=== PATIENT | female | born 1950 | race Caucasian/White ===

== ENCOUNTER → 2017-12-31 | Outpatient (CLI) | payer OTHER | END | disposition home or self-care (01) | LOC: KCIC MRI 10:15 | DX: M48.061 Spinal stenosis, lumbar region without neurogenic claudication (principal); M43.16 Spondylolisthesis, lumbar region; M51.36 Other intervertebral disc degeneration, lumbar region; M25.78 Osteophyte, vertebrae | CPT/HCPCS: 72148 ==

== ENCOUNTER → 2018-01-05 | Outpatient (CLI) | payer OTHER | END | disposition home or self-care (01) | LOC: PNCL 12:52 | DX: M51.16 Intervertebral disc disorders with radiculopathy, lumbar region (principal); M48.061 Spinal stenosis, lumbar region without neurogenic claudication; R53.83 Other fatigue | CPT/HCPCS: G0463 ==

== ENCOUNTER → 2018-01-19 | Outpatient (CLI) | payer OTHER, MEDICARE ==
[~2018-01-19] MED LIST: IOHEXOL 180 MG/ML 10 ML VIAL.; methylPREDNISolone ACETATE 40 MG/ML VIAL.; methylPREDNISolone ACETATE 80 MG/ML VIAL.
== END | disposition home or self-care (01) ==
LOC: PNCL 10:41
DX: M51.16 Intervertebral disc disorders with radiculopathy, lumbar region (principal); Z88.8 Allergy status to other drugs, medicaments and biological substances; I10 Essential (primary) hypertension; J40 Bronchitis, not specified as acute or chronic; E11.9 Type 2 diabetes mellitus without complications
CPT/HCPCS: 62323; J1030; J1040; Q9965

== ENCOUNTER → 2018-01-19 | Outpatient (CLI) | payer OTHER | END | disposition home or self-care (01) | LOC: KCIC 15:41 | DX: M47.12 Other spondylosis with myelopathy, cervical region (principal); M48.02 Spinal stenosis, cervical region; M41.82 Other forms of scoliosis, cervical region; M51.44 Schmorl's nodes, thoracic region; M47.897 Other spondylosis, lumbosacral region; M81.8 Other osteoporosis without current pathological fracture; M25.78 Osteophyte, vertebrae; M16.0 Bilateral primary osteoarthritis of hip | CPT/HCPCS: 72141; 72146; 73502 ==

== ENCOUNTER → 2018-02-02 | Outpatient (CLI) | payer OTHER ==
[2018-02-02 09:19] LABS: ADD MAN DIFF? NO
[2018-02-02 09:26] LABS: BASO # 0.1 x10^3/uL (0.0-0.2); BASO % 1 % (0-3); EOS # 0.2 x10^3/uL (0.0-0.7); EOS % 1 % (0-3); HEMATOCRIT 40.3 % (36.0-47.0); HEMOGLOBIN 13.4 g/dL (12.0-15.5); LYMPH # 2.6 x10^3/uL (1.0-4.8); LYMPH % 19 % (24-48); MEAN CORPUSCULAR HEMOGLOBIN 28 pg (25-35); MEAN CORPUSCULAR HGB CONC 33 g/dL (31-37); MEAN CORPUSCULAR VOLUME 85 fL (79-100); MONO # 0.8 x10^3/uL (0.0-1.1); MONO % 6 % (0-9); NEUT # 10.2 x10^3uL (1.8-7.7); NEUT % 74 % (31-73); PLATELET COUNT 449 x10^3/uL (140-400); RED BLOOD COUNT 4.75 x10^6/uL (3.50-5.40); RED CELL DISTRIBUTION WIDTH 14.8 % (11.5-14.5); WHITE BLOOD COUNT 13.8 x10^3/uL (4.0-11.0)
[2018-02-02 09:37] LABS: ALBUMIN 3.5 g/dL (3.4-5.0); ANION GAP 11 (6-14); BLOOD UREA NITROGEN 36 mg/dL (7-20); CALCIUM 9.6 mg/dL (8.5-10.1); CARBON DIOXIDE 23 mmol/L (21-32); CHLORIDE 99 mmol/L (98-107); GFR 55.5; GLUCOSE 155 mg/dL (70-99); POTASSIUM 4.2 mmol/L (3.5-5.1); SODIUM 133 mmol/L (136-145)
[2018-02-02 09:47] LABS: PARTIAL THROMBOPLASTIN TIME 28 SEC (24-38); PROTHROMBIN TIME PATIENT 12.5 SEC (11.7-14.0)
[2018-02-02 11:30] LABS: SEDIMENTATION RATE 23 (0-25)
[2018-02-02 13:30] LABS: BILIRUBIN,URINE NEGATIVE (NEG); CLARITY,URINE CLEAR; COLOR,URINE YELLOW; GLUCOSE,URINE 100 mg/dL (NEG); NITRITE,URINE NEGATIVE (NEG); PROTEIN,URINE NEGATIVE (NEG-TRACE); UROBILINOGEN,URINE 0.2 mg/dL (0.2 mg/dL)
[2018-02-02 13:42] LABS: BACTERIA,URINE FEW /HPF (0-FEW); RBC,URINE 0 /HPF (0-2); SQUAMOUS EPITHELIAL CELL,UR MOD /LPF; WBC,URINE OCC /HPF (0-4)
[2018-02-03 03:14] LABS: MRSA BY PCR Negative (Negative)
[2018-02-03 03:14] LABS: HEMOGLOBIN A1C 7.7 % (4.8-5.6)
== END | disposition home or self-care (01) ==
LOC: SURGPAT 14:38
DX: Z01.818 Encounter for other preprocedural examination (principal); I10 Essential (primary) hypertension; M19.012 Primary osteoarthritis, left shoulder; M19.011 Primary osteoarthritis, right shoulder; R94.31 Abnormal electrocardiogram [ECG] [EKG]
CPT/HCPCS: 36415; 71046; 80048; 81001; 82040; 83036; 85025; 85610; 85651; 85730; 87086; 87641; 93005

== ENCOUNTER → 2018-02-19 | Outpatient (CLI) | payer OTHER ==
[2018-02-19] MEDS: REGADENOSON 0.4 MG/5 ML DISP.SYRIN. IV (10:26)
== END | disposition home or self-care (01) ==
LOC: NM 07:25
DX: Z01.818 Encounter for other preprocedural examination (principal)
CPT/HCPCS: 78452; 93017; 93306; 96374; 96375; 96376; A9500; J2785

== ENCOUNTER 2018-02-24 06:14 | Inpatient (IN) | payer OTHER, MEDICARE ==
[2018-02-24 06:49] LABS: POC GLUCOSE 148 mg/dL (70-99)
[2018-02-24] MEDS ORDERED: LIDOCAINE 1% PF 2 ML VIAL. ID (07:00)
[2018-02-24] MEDS ORDERED: fentaNYL PF VIAL 100 MCG/2 ML VIAL IV ×3 (07:00→07:15)
[2018-02-24] MEDS ORDERED: ONDANSETRON PF 4 MG/2 ML VIAL. IV (07:00)
[2018-02-24] MEDS ORDERED: PROCHLORPERAZINE 10 MG/2 ML VIAL. IV ×2 (07:00→07:15)
[2018-02-24] MEDS: IV DEXTROSE 5 %-0.45 % NACL 1,000 ML IV ×2 (07:05→17:05)
[2018-02-24] MEDS ORDERED: HYDROcodone/APAP 7.5/325MG 1 TAB TABLET PO (07:15)
[2018-02-24] MEDS ORDERED: oxyCODONE/APAP 7.5/325 1 TAB TABLET PO (07:15)
[2018-02-24] MEDS ORDERED: ZOLPIDEM 5 MG TABLET. PO (07:15)
[2018-02-24] MEDS ORDERED: NALBUPHINE 10 MG/ML AMPUL. IV (07:15)
[2018-02-24] MEDS ORDERED: MORPHINE SULFATE 4 MG/ML DISP.SYRIN. IV ×2 (07:15)
[2018-02-24] MEDS ORDERED: HYDROcodone/APAP 10/325 1 TAB TABLET PO (07:15)
[2018-02-24] MEDS ORDERED: DEXTROSE 50% 25 GM / 50ML DISP.SYRIN. IV (07:15)
[2018-02-24] MEDS ORDERED: traMADol 50 MG TABLET PO (07:15)
[2018-02-24] MEDS ORDERED: ACETAMINOPHEN 325 MG TABLET. PO (07:15)
[2018-02-24] MEDS ORDERED: CALCIUM CARBONATE 500 MG TAB.CHEW PO (07:15)
[2018-02-24] MEDS ORDERED: 0.9 % SODIUM CHLORIDE 10 ML DISP.SYRIN. IV (07:15)
[2018-02-24] MEDS ORDERED: oxyCODONE/APAP 5/325 1 TAB TABLET PO (07:15)
[2018-02-24] MEDS ORDERED: PHENYLEPHRINE in 0.9% NACL PF 1 MG/10 ML SYRINGE. IV (07:19)
[2018-02-24] MEDS ORDERED: ROCURONIUM 50 MG/5 ML VIAL. (07:19)
[2018-02-24] MEDS ORDERED: ONDANSETRON PF 4 MG/2 ML VIAL. (07:19)
[2018-02-24] MEDS ORDERED: SEVOFLURANE 61 TO 120 MINUTES. IH (07:19)
[2018-02-24] MEDS ORDERED: DEXAMETHASONE SOD PHOS 20 MG/5 ML VIAL. (07:19)
[2018-02-24] MEDS ORDERED: PROPOFOL 20 ML IV (07:19)
[2018-02-24] MEDS: IV RINGERS,LACTATED 1000ML 1,000 ML IV (07:21)
[2018-02-24] MEDS: HYDROcodone/APAP 7.5/325MG 1 TAB TABLET PO (07:26)
[2018-02-24] MEDS: CELECOXIB 200 MG CAPSULE. PO ×2 (07:27→21:06)
[2018-02-24 07:28] LABS: INR 1.1 (0.8-1.1); PARTIAL THROMBOPLASTIN TIME 33 SEC (24-38); PROTHROMBIN TIME PATIENT 13.8 SEC (11.7-14.0)
[2018-02-24] MEDS: TRANEXAMIC ACID 1,000 MG in IV NS 50ML -- 1ST BAG INJ (07:40)
[2018-02-24] MEDS: MORPHINE SULFATE 5 MG, KETOROLAC 30 MG, ROPIVacaine 0.5% PF 60 ML, EPINEPHrine 0.5 MG i... INT ART (08:01)
[2018-02-24] MEDS: TRANEXAMIC ACID 1,000 MG in IV NS 50ML -- 2ND BAG INJ (09:30)
[2018-02-24] MEDS ORDERED: GLYCOPYRROLATE 1 MG/5 ML VIAL. (09:32)
[2018-02-24] MEDS ORDERED: NEOSTIGMINE METHYLSULFATE 5 MG/5 ML SYRINGE. (09:32)
[2018-02-24] MEDS ORDERED: fentaNYL PF VIAL 100 MCG/2 ML VIAL (10:18)
[2018-02-24] MEDS: fentaNYL PF VIAL 100 MCG/2 ML VIAL IV ×4 (10:20→10:53)
[2018-02-24 10:54] LABS: POC GLUCOSE 212 mg/dL (70-99)
[2018-02-24] MEDS: INSULIN ASPART 100 UNIT/ML 10ML VIAL. SQ (10:57)
[2018-02-24] MEDS: MORPHINE SULFATE 4 MG/ML DISP.SYRIN. IV ×2 (11:16→11:32)
[2018-02-24] MEDS ORDERED: ceFAZolin 2GM PREMIX 2 GM/50 ML BAG IV (12:00)
[2018-02-24] MEDS: SENNOSIDES/DOCUSATE 8.6/50MG TABLET. PO (13:39)
[2018-02-24] MEDS: hydroCHLOROthiazide 25 MG TABLET PO (14:00)
[2018-02-24] MEDS: LISINOPRIL 20 MG TABLET PO (14:00)
[2018-02-24 16:40] LABS: POC GLUCOSE 188 mg/dL (70-99)
[2018-02-24] MEDS: WARFARIN 7.5 MG TABLET. PO (17:30)
[2018-02-24] MEDS: FERROUS SULFATE 325 MG TABLET. PO (17:30)
[2018-02-24] MEDS: metFORMIN 500 MG TABLET PO (17:31)
[2018-02-24] MEDS: KETOROLAC 30 MG, BUPIVACAINE MPF 0.25% 20 ML, EPINEPHrine 0.5 MG in TOTAL VOLUME SYRING... INT ART (17:32)
[2018-02-24] MEDS: traMADol 50 MG TABLET PO ×2 (17:32→21:58)
[2018-02-24] MEDS: AZELASTINE NASAL SPRAY 30ML BOTTLE. NS (21:07)
[2018-02-25 05:10] LABS: POC GLUCOSE 159 mg/dL (70-99)
[2018-02-25] MEDS: KETOROLAC 30 MG, BUPIVACAINE MPF 0.25% 20 ML, EPINEPHrine 0.5 MG in TOTAL VOLUME SYRING... INT ART (05:30)
[2018-02-25 05:55] LABS: HEMATOCRIT 27.4 % (36.0-47.0); HEMOGLOBIN 9.6 g/dL (12.0-15.5); MEAN CORPUSCULAR HGB CONC 35 g/dL (31-37)
[2018-02-25] MEDS ORDERED: MAGNESIUM HYDROXIDE 2,400 MG/30 ML ORAL.SUSP. PO (06:00)
[2018-02-25 06:06] LABS: INR 1.6 (0.8-1.1); PROTHROMBIN TIME PATIENT 18.5 SEC (11.7-14.0)
[2018-02-25] MEDS: MULTIVITAMIN with MINERAL TABLET. PO (08:32)
[2018-02-25] MEDS: FERROUS SULFATE 325 MG TABLET. PO ×2 (08:32→17:18)
[2018-02-25] MEDS: CELECOXIB 200 MG CAPSULE. PO ×2 (08:32→20:59)
[2018-02-25] MEDS: SENNOSIDES/DOCUSATE 8.6/50MG TABLET. PO (08:32)
[2018-02-25] MEDS: metFORMIN 500 MG TABLET PO ×2 (08:32→17:18)
[2018-02-25] MEDS: traMADol 50 MG TABLET PO ×3 (08:33→22:04)
[2018-02-25] MEDS: AZELASTINE NASAL SPRAY 30ML BOTTLE. NS ×2 (08:35→20:59)
[2018-02-25] MEDS: LISINOPRIL 20 MG TABLET PO (09:00)
[2018-02-25] MEDS: hydroCHLOROthiazide 25 MG TABLET PO (09:00)
[2018-02-25 12:06] LABS: POC GLUCOSE 165 mg/dL (70-99)
[2018-02-25] MEDS ORDERED: BISACODYL 10 MG SUPP.RECT. PR (16:00)
[2018-02-25 16:41] LABS: POC GLUCOSE 135 mg/dL (70-99)
[2018-02-25] MEDS: WARFARIN 3 MG TABLET. PO (17:18)
[2018-02-26] MEDS: traMADol 50 MG TABLET PO ×3 (02:03→17:38)
[2018-02-26 06:09] LABS: HEMATOCRIT 25.8 % (36.0-47.0); HEMOGLOBIN 8.9 g/dL (12.0-15.5); MEAN CORPUSCULAR HGB CONC 35 g/dL (31-37)
[2018-02-26 06:13] LABS: INR 2.3 (0.8-1.1); PROTHROMBIN TIME PATIENT 24.9 SEC (11.7-14.0)
[2018-02-26 06:21] LABS: POC GLUCOSE 103 mg/dL (70-99)
[2018-02-26] MEDS: SENNOSIDES/DOCUSATE 8.6/50MG TABLET. PO (08:08)
[2018-02-26] MEDS: POLYETHYLENE GLYCOL 3350 17 GM PACKET. PO (08:08)
[2018-02-26] MEDS: CELECOXIB 200 MG CAPSULE. PO ×2 (08:08→20:36)
[2018-02-26] MEDS: hydroCHLOROthiazide 25 MG TABLET PO (08:08)
[2018-02-26] MEDS: MULTIVITAMIN with MINERAL TABLET. PO (08:08)
[2018-02-26] MEDS: metFORMIN 500 MG TABLET PO ×2 (08:08→17:38)
[2018-02-26] MEDS: FERROUS SULFATE 325 MG TABLET. PO ×2 (08:08→17:38)
[2018-02-26] MEDS: LISINOPRIL 20 MG TABLET PO (09:00)
[2018-02-26 11:40] LABS: POC GLUCOSE 102 mg/dL (70-99)
[2018-02-26] MEDS: WARFARIN 1 MG TABLET. PO (17:39)
[2018-02-26] MEDS: AZELASTINE NASAL SPRAY 30ML BOTTLE. NS ×2 (17:41→20:36)
[2018-02-26 20:41] LABS: POC GLUCOSE 124 mg/dL (70-99)
[2018-02-26 20:41] LABS: POC GLUCOSE 112 mg/dL (70-99)
[2018-02-27] MEDS: traMADol 50 MG TABLET PO ×3 (00:27→13:02)
[2018-02-27 05:59] LABS: HEMATOCRIT 27.6 % (36.0-47.0); HEMOGLOBIN 9.8 g/dL (12.0-15.5); MEAN CORPUSCULAR HGB CONC 36 g/dL (31-37)
[2018-02-27 06:40] LABS: POC GLUCOSE 112 mg/dL (70-99)
[2018-02-27 06:47] LABS: INR 1.9 (0.8-1.1); PROTHROMBIN TIME PATIENT 21.5 SEC (11.7-14.0)
[2018-02-27] MEDS: SENNOSIDES/DOCUSATE 8.6/50MG TABLET. PO (08:36)
[2018-02-27] MEDS: FERROUS SULFATE 325 MG TABLET. PO (08:36)
[2018-02-27] MEDS: hydroCHLOROthiazide 25 MG TABLET PO (08:36)
[2018-02-27] MEDS: metFORMIN 500 MG TABLET PO (08:36)
[2018-02-27] MEDS: CELECOXIB 200 MG CAPSULE. PO (08:36)
[2018-02-27] MEDS: AZELASTINE NASAL SPRAY 30ML BOTTLE. NS (08:39)
[2018-02-27] MEDS: MULTIVITAMIN with MINERAL TABLET. PO (09:00)
[2018-02-27] MEDS: WARFARIN 2 MG TABLET. PO (13:04)
[2018-02-28] MEDS ORDERED: WARFARIN 3 MG TABLET. PO (16:00)
[2018-03-03 10:21] LABS: POC GLUCOSE 107 mg/dL (70-99)
== END 2018-02-27 14:40 | DRG 470 ==
LOC: OPSVCIP 06:14 → 4 SOUTHEST 11:39
PROC: 0SR90JZ Replacement of Right Hip Joint with Synthetic Substitute, Open Approach (ICD-10-PCS; principal; 2018-02-24 07:30)
DX: M16.11 Unilateral primary osteoarthritis, right hip (principal); I48.91 Unspecified atrial fibrillation; E11.9 Type 2 diabetes mellitus without complications; I10 Essential (primary) hypertension; M48.00 Spinal stenosis, site unspecified
CPT/HCPCS: 36415; 72170; 73501; 82962; 85014; 85018; 85610; 85730; 86850; 86900; 86901; 97116-GP; 97150-GP; 97162-GP; 97166-GO; 97530-GP; 97535-GO; A7015; J0171; J0690; J1100; J1815; J1885; J2270; J2370; J2405; J2704; J2710; J2795; J3010; J3490; J7030; J7120

== ENCOUNTER 2018-04-02 10:56 | Emergency (ER) | payer OTHER, MEDICARE ==
[2018-04-02 11:54] LABS: ADD MAN DIFF? NO
[2018-04-02 12:02] LABS: BASO # 0.1 x10^3/uL (0.0-0.2); BASO % 1 % (0-3); EOS # 0.1 x10^3/uL (0.0-0.7); EOS % 1 % (0-3); HEMATOCRIT 29.1 % (36.0-47.0); HEMOGLOBIN 10.2 g/dL (12.0-15.5); LYMPH # 1.4 x10^3/uL (1.0-4.8); LYMPH % 12 % (24-48); MEAN CORPUSCULAR HEMOGLOBIN 29 pg (25-35); MEAN CORPUSCULAR HGB CONC 35 g/dL (31-37); MEAN CORPUSCULAR VOLUME 83 fL (79-100); MONO # 0.8 x10^3/uL (0.0-1.1); MONO % 7 % (0-9); NEUT # 8.9 x10^3uL (1.8-7.7); NEUT % 78 % (31-73); PLATELET COUNT 509 x10^3/uL (140-400); RED BLOOD COUNT 3.49 x10^6/uL (3.50-5.40); RED CELL DISTRIBUTION WIDTH 15.6 % (11.5-14.5); WHITE BLOOD COUNT 11.4 x10^3/uL (4.0-11.0)
[2018-04-02 12:05] LABS: ANION GAP 12 (6-14); BLOOD UREA NITROGEN 21 mg/dL (7-20); BUN/CREATININE RATIO 21 (6-20); CARBON DIOXIDE 24 mmol/L (21-32); CHLORIDE 96 mmol/L (98-107); GFR 55.3; GLUCOSE 146 mg/dL (70-99); POTASSIUM 3.7 mmol/L (3.5-5.1); SODIUM 132 mmol/L (136-145)
[2018-04-02 12:08] LABS: CLARITY,URINE BLOODY; COLOR,URINE RED
[2018-04-02 12:10] LABS: CREATINE KINASE 77 U/L (26-192)
[2018-04-02 12:11] LABS: ALBUMIN 3.2 g/dL (3.4-5.0); ALBUMIN/GLOBULIN RATIO 0.9 (1.0-1.7); ALK PHOS 109 U/L (46-116); ALT (SGPT) 16 U/L (14-59); AST (SGOT) 17 U/L (15-37); RBC,URINE TNTC /HPF (0-2); TOTAL BILIRUBIN 0.5 mg/dL (0.2-1.0); TOTAL PROTEIN 6.9 g/dL (6.4-8.2)
[2018-04-02 12:12] LABS: BACTERIA,URINE 0 /HPF (0-FEW)
[2018-04-02 12:52] LABS: INR 7.2 (0.8-1.1); PARTIAL THROMBOPLASTIN TIME > 150 SEC (24-38)
[2018-04-02] MEDS: PHYTONADIONE 10 MG/ML ORAL SOLUTION. PO (13:47)
== END 2018-04-02 14:02 | disposition home or self-care (01) ==
LOC: ER 10:56
DX: R04.0 Epistaxis (principal); T45.515A Adverse effect of anticoagulants, initial encounter; E78.00 Pure hypercholesterolemia, unspecified; E11.9 Type 2 diabetes mellitus without complications; I48.91 Unspecified atrial fibrillation; I10 Essential (primary) hypertension; Z91.041 Radiographic dye allergy status; Z88.8 Allergy status to other drugs, medicaments and biological substances; Y92.89 Other specified places as the place of occurrence of the external cause
CPT/HCPCS: 36415; 80053; 81001; 82550; 85025; 85610; 85730; 86850; 86900; 86901; 99284

== ENCOUNTER 2022-01-02 03:35 | Emergency (ER) | payer MEDICARE, OTHER ==
[~2022-01-02] VITALS: Ht 157.5 cm; Wt 81.8 kg
[~2022-01-02 03:35] MED LIST changes: +APIX5TAB PO; +ASPI325T8 PO; +ASPI81TA59 PO; +ATOR10TA PO; +AZEL137S3 NS; +CYCL5TAB PO; +DILT240C2 PO; +Diltiazem Hcl PO; +HYDR-2761 PO; -IOHEXOL 180 MG/ML 10 ML VIAL.; +LISI1TAB39 PO; +METF500T16 PO; +MUPI22OI TP; +NAPR500T8 PO; +POLY17PO29 PO; +SENN1TAB99 PO; +TRAM50TA PO; +VERA240C2 PO; -methylPREDNISolone ACETATE 40 MG/ML VIAL.; -methylPREDNISolone ACETATE 80 MG/ML VIAL.
[2022-01-02 04:53] LABS: BASO # 0.1 x10^3/uL (0.0-0.2); BASO % 1 % (0-3); EOS # 0.3 x10^3/uL (0.0-0.7); EOS % 2 % (0-3); HEMATOCRIT 37.1 % (36.0-47.0); HEMOGLOBIN 12.3 g/dL (12.0-15.5); LYMPH # 1.8 x10^3/uL (1.0-4.8); LYMPH % 15 % (24-48); MEAN CORPUSCULAR HEMOGLOBIN 28 pg (25-35); MEAN CORPUSCULAR HGB CONC 33 g/dL (31-37); MEAN CORPUSCULAR VOLUME 85 fL (79-100); MONO # 0.8 x10^3/uL (0.0-1.1); MONO % 7 % (0-9); NEUT # 8.7 x10^3/uL (1.8-7.7); NEUT % 74 % (31-73); PLATELET COUNT 440 x10^3/uL (140-400); RED BLOOD COUNT 4.35 x10^6/uL (3.50-5.40); RED CELL DISTRIBUTION WIDTH 13.6 % (11.5-14.5); WHITE BLOOD COUNT 11.7 x10^3/uL (4.0-11.0)
[2022-01-02] MEDS ORDERED: OXYMETAZOLINE 0.05% NASAL SPRAY 30ML BOTTLE. NS ONE ×2 (05:00)
[2022-01-02 05:08] LABS: CALCIUM 8.6 mg/dL (8.5-10.1); CREATININE 1.3 mg/dL (0.6-1.0); GFR 40.5; POTASSIUM 4.4 mmol/L (3.5-5.1)
[2022-01-02 05:14] LABS: ALBUMIN/GLOBULIN RATIO 0.7 (1.0-1.7); TOTAL BILIRUBIN 0.4 mg/dL (0.2-1.0); TOTAL PROTEIN 7.4 g/dL (6.4-8.2)
--- NOTE | 2022-01-02 05:26 | PHYS DOC ---
Past Medical History Past Medical History: A-Fib, Diabetes-Type II, High Cholesterol, Hypertension, Other Additional Past Medical Histor: RECTAL BLEEDING Past Surgical History: Other Additional Past Surgical Histo: cardiac cath in september,)hip replacement. Smoking Status: Never Smoker Alcohol Use: None Drug Use: None General Adult EDM: Chief Complaint: NOSEBLEED HPI: HPI: 71-year-old female with prior past medical history of hypertension, hyperlipi demia and paroxysmal A. fib, presents to the ED with her sister, (patient consents to his/her/their knowledge and involvement in pts' medical care), with complaints of nosebleed that started earlier today, right nare. Patient states she doesn't take any medications-she took her self off of all of her medications. Has not seen a primary care physician Dr. Meet Mckay in 2-1/2 years. Reports her blood pressure is normally not this elevated. Has been undergoing significant stress and is currently living with her sister and sister's . Denies any falls or head trauma. Review of Systems: Review of Systems: Constitutional: Denies fever or chills. [] Eyes: Denies change in visual acuity. [] HENT: Denies nasal congestion or sore throat. [] Respiratory: Denies cough or shortness of breath. [] Cardiovascular: Denies chest pain or edema. [] GI: Denies nausea or vomiting Musculoskeletal: Denies back pain or joint pain. [] Integument: Denies rash or diaphoresis Neurologic: Denies headache, focal weakness or sensory changes. [] Psychiatric: Denies depression or anxiety or suicidal or homicidal ideations Heart Score: C/O Chest Pain: No Risk Factors: Risk Factors: DM, Current or recent (<one month) smoker, HTN, HLP, family history of CAD, obesity. Risk Scores: Score 0 - 3: 2.5% MACE over next 6 weeks - Discharge Home Score 4 - 6: 20.3% MACE over next 6 weeks - Admit for Clinical Observation Score 7 - 10: 72.7% MACE over next 6 weeks - Early Invasive Strategies Current Medications: Current Medications Medications (Trade) Dose Ordered Sig/Dejon Start Time Stop Time Status Last Admin Dose Admin Oxymetazoline HCl (Afrin) 2 spray 1X ONCE 01/02/22 05:00 01/02/22 05:01 DC 01/02/22 04:51 2 SPRAY Allergies: Allergies: Allergies Coded Allergies Type Severity Reaction Last Updated Verified atorvastatin Allergy Intermediate 02/04/18 Yes enoxaparin Adverse Reaction Severe 04/27/18 Yes warfarin Adverse Reaction Severe 04/27/18 Yes adhesive tape Adverse Reaction Intermediate Rash 02/04/18 Yes diphenhydramine Adverse Reaction Intermediate LIGHTHEADED 09/15/14 No Physical Exam: PE: Constitutional: no acute distress, non-toxic appearance. HENT: Normocephalic, atraumatic, no brisk bleeding in oropharynx, scant blood in right nare Eyes: EOMI, conjunctiva normal, no discharge. Neck: Normal range of motion, supple, Cardiovascular: S1/2 present, regular rhythm Lungs & Thorax: Speaking in full sentences, bilateral equal chest rise, no tachypnea or increased work of breathing Abdomen: soft, no tenderness, Skin: Warm, dry, no erythema, no rash. [] Extremities: No tenderness, no cyanosis, Neurologic: Alert and oriented X 3, normal motor function, normal sensory function, no focal deficits noted. [] Psychologic: Affect normal, judgement normal, mood -appears slightly anxious Current Patient Data: Labs: Laboratory Tests Test 01/02/22 04:48 White Blood Count 11.7 x10^3/uL (4.0-11.0) H Red Blood Count 4.35 x10^6/uL (3.50-5.40) Hemoglobin 12.3 g/dL (12.0-15.5) Hematocrit 37.1 % (36.0-47.0) Mean Corpuscular Volume 85 fL (79-100) Mean Corpuscular Hemoglobin 28 pg (25-35) Mean Corpuscular Hemoglobin Concent 33 g/dL (31-37) Red Cell Distribution Width 13.6 % (11.5-14.5) Platelet Count 440 x10^3/uL (140-400) H Neutrophils (%) (Auto) 74 % (31-73) H Lymphocytes (%) (Auto) 15 % (24-48) L Monocytes (%) (Auto) 7 % (0-9) Eosinophils (%) (Auto) 2 % (0-3) Basophils (%) (Auto) 1 % (0-3) Neutrophils # (Auto) 8.7 x10^3/uL (1.8-7.7) H Lymphocytes # (Auto) 1.8 x10^3/uL (1.0-4.8) Monocytes # (Auto) 0.8 x10^3/uL (0.0-1.1) Eosinophils # (Auto) 0.3 x10^3/uL (0.0-0.7) Basophils # (Auto) 0.1 x10^3/uL (0.0-0.2) Sodium Level 129 mmol/L (136-145) L Potassium Level 4.4 mmol/L (3.5-5.1) Chloride Level 93 mmol/L (98-107) L Carbon Dioxide Level 25 mmol/L (21-32) Anion Gap 11 (6-14) Blood Urea Nitrogen 30 mg/dL (7-20) H Creatinine 1.3 mg/dL (0.6-1.0) H Estimated GFR (Cockcroft-Gault) 40.5 BUN/Creatinine Ratio 23 (6-20) H Glucose Level 494 mg/dL (70-99) H Calcium Level 8.6 mg/dL (8.5-10.1) Total Bilirubin 0.4 mg/dL (0.2-1.0) Aspartate Amino Transferase (AST) 14 U/L (15-37) L Alanine Aminotransferase (ALT) 23 U/L (14-59) Alkaline Phosphatase 113 U/L (46-116) Total Protein 7.4 g/dL (6.4-8.2) Albumin 3.0 g/dL (3.4-5.0) L Albumin/Globulin Ratio 0.7 (1.0-1.7) L Laboratory Tests 01/02/22 04:48 Laboratory Tests 01/02/22 04:48 Vital Signs: Vital Signs Date Time Temp Pulse Resp B/P (MAP) Pulse Ox O2 Delivery O2 Flow Rate FiO2 01/02/22 04:08 98.1 96 20 186/87 (120) 96 Room Air 98.1 EKG: EKG: [] Radiology/Procedures: Radiology/Procedures: [] Course & Med Decision Making: Course & Med Decision Making Pertinent Labs and Imaging studies reviewed. (See chart for details) Concern for spontaneous right epistaxis with hemostasis. Was observed in the ED -had recurrent blooding that spontaneously stopped prior to any intervention. Afrin was given. Repeat blood pressure was 154/74. Patient not on any Coumadin-reports she was only on it for 3 months, A. fib spontaneously resolved. Patient was educated regarding her labs including renal insufficiency and hyperglycemia. I encourage patient to follow-up with her primary care physician in 1 to 2 weeks to repeat her blood pressure, hemoglobin A1c and labs. She was educated on her increased risk of stroke and the benefits of medical management. Will discharge home with strict ED return precautions were given for syncope, brisk bleeding, or difficulties breathing. Encouraged urgent outpatient follow- up with PMD. Life-threatening processes were considered but are low suspicion at this time, given history, physical exam and ED workup. Pt was educated on all prescription medications and adverse effects. All patient's questions were answered and pt was stable at time of discharge. Life/limb-threatening differential includes but is not limited to, thrombocytopenia, drug related adverse event, gastrointestinal bleeding, posterior epistaxis, hemorrhagic shock, DIC, life-threatening rash, arterial injury or trauma. I have spoken with the patient and/or caregivers. I explained the patient's condition, diagnoses and treatment plan based on the information available to me at this time. I have answered the patient and/or caregiver's questions and addressed any concerns. The patient and/or caregivers have a good understanding of patient's diagnosis, condition and treatment plan as can be expected at this point. Vital signs have been stable. Patient's condition is stable and appropriate for discharge from the emergency department. Patient will pursue further outpatient evaluation with primary care physician or other designated or consulting physician as outlined in the discharge instructions. The patient and/or caregivers are agreeable to this plan of care and follow-up instructions have been explained in detail. The patient and/or caregivers have received these instructions in written form and have expressed an understanding of the discharge instructions. The patient and/or caregivers are aware that any significant change of condition or worsening of symptoms should prompt immediate return to this or the closest emergency department or call to 911. Arelis Disclaimer: Arelis Disclaimer: This electronic medical record was generated, in whole or in part, using a voice recognition dictation system. Departure Departure Impression: Primary Impression: Epistaxis Additional Impressions: Hyperglycemia Renal insufficiency Uncontrolled hypertension Disposition: HOME / SELF CARE / HOMELESS Condition: STABLE Referrals: MEET COOK MD (PCP) follow up in 1 week for HgA1c, blood pressure and kidney evaluation Patient Instructions: Hyperglycemia, Ablb-ic-Sqja, Hypertension, Nosebleed Additional Instructions: EMERGENCY DEPARTMENT GENERAL DISCHARGE INSTRUCTIONS Thank you for coming to [facility] Emergency Department (ED) today and trusting us with you care. We trust that you had a positive experience in our Emergency Department. If you wish to speak to the department management, you may call the Director at [phone]. YOUR FOLLOW UP INSTRUCTIONS ARE FOLLOWS: 1. Do you have a private Doctor? If you do not have a private doctor, please ask for a resource list of physicians or clinics that may be able to assist you with follow up care. 2. The Emergency Physicain has interpreted your x-rays. The X-Ray specialist will also review them. If there is a change in the findings, you will be notified in 48 hours when at all possible. 3. A lab test or culture has been done, your results will be reviewed and you will be notified if you need a change in treatment. ADDITIONAL INSTRUCTIONS AND INFORMATION: 1. Your care today has been supervised by a physician who is specially trained in emergency care. Many problems require more than one evaluation for a complete diagnosis and treatment. We recommend that you schedule your follow up appointment as recommended to ensure complete treatment of you illness or injury. If you are unable to obtain follow up care and continue to have a problem, or if your condition worsens, we recommend that you return to the ED. 2. We are not able to safely determine your condition over the phone nor are we able to give sound medical advice over the phone. For these safety reasons, if you call for medical advice we will ask you to come to the ED for further evaluation. 3. If you have any questions regarding these discharge instructions please call the ED at [phone]. SAFETY INFORMATION: In the interest of safety, wellness, and injury prevention; we encourage you to wear your sealbelt, if you smoke; quite smoking, and we encourage family to use a protective helmet for bicycling and other sporting events that present an increased risk for head injury. IF YOUR SYMPTOMS WORSEN OR NEW SYMPTOMS DEVELOP, OR YOU HAVE CONCERNS ABOUT YOUR CONDITION; OR IF YOUR CONDITION WORSENS WHILE YOU ARE WAITING FOR YOUR FOLLOW UP APPOINTMENT; EITHER CONTACT YOUR PRIMARY CARE DOCTOR, THE PHYSICIAN WHOSE NAME AND NUMBER YOU WERE GIVEN, OR RETURN TO THE ED IMMEDIATELY. TEE EPPERSON DO Jan 02, 2022 05:25
[2022-01-02 06:23] VITALS: BP 149/72
== END 2022-01-02 07:40 | disposition home or self-care (01) ==
LOC: ER 03:35
DX: R04.0 Epistaxis (principal); E11.65 Type 2 diabetes mellitus with hyperglycemia; I10 Essential (primary) hypertension; N28.9 Disorder of kidney and ureter, unspecified; I48.91 Unspecified atrial fibrillation; E78.00 Pure hypercholesterolemia, unspecified; Z88.8 Allergy status to other drugs, medicaments and biological substances; Z88.5 Allergy status to narcotic agent
CPT/HCPCS: 36415; 80053; 85025; 99285-25

== ENCOUNTER 2022-03-31 11:10 | Inpatient (IN) | payer MEDICARE, MEDICAID ==
[~2022-03-31] VITALS: Ht 157.5 cm; Wt 82.5 kg
[2022-03-31 12:49] LABS: BACTERIA,URINE MANY /HPF (0-FEW); RBC,URINE 0 /HPF (0-2); WBC,URINE TNTC /HPF (0-4)
[2022-03-31] MEDS ORDERED: ONDA4TAB12 PO (13:09)
[2022-03-31] MEDS ORDERED: CEPH500C PO (13:09)
--- NOTE | 2022-03-31 13:12 | PHYS DOC ---
Past Medical History Past Medical History: A-Fib, Diabetes-Type II, High Cholesterol, Hypertension, Other Additional Past Medical Histor: RECTAL BLEEDING Past Surgical History: Other Additional Past Surgical Histo: cardiac cath in september,)hip replacement. Smoking Status: Never Smoker Alcohol Use: None Drug Use: None General Adult EDM: Chief Complaint: GI PROBLEM HPI: HPI: History obtained from patient. Patient is a 72-year-old female with past medical history significant for [id number] diabetes, hypertension who presents with chief complaint of urinary urgency and left lower quadrant discomfort with urination. Notes 2 small bowel movements today. States they were nonbloody. No she is passing flatus. Notes some mild nausea but denies vomiting. Denies fevers. Denies history of UTIs. Notes history of normal colonoscopy. Denies previous abdominal surgical history. Has been able to tolerate p.o. today. Denies vaginal bleeding or discharge. Denies hematuria. Denies any low back pain. Review of Systems: Review of Systems: Constitutional: Denies fever or chills. [] Eyes: Denies change in visual acuity. [] HENT: Denies nasal congestion or sore throat. [] Respiratory: Denies cough or shortness of breath. [] Cardiovascular: Denies chest pain or edema. [] GI: Denies abdominal pain, nausea, vomiting, bloody stools or diarrhea. [] : Dysuria, urinary urgency Musculoskeletal: Denies back pain or joint pain. [] Integument: Denies rash. [] Neurologic: Denies headache, focal weakness or sensory changes. [] Endocrine: Denies polyuria or polydipsia. [] Lymphatic: Denies swollen glands. [] Psychiatric: Denies depression or anxiety. [] Heart Score: C/O Chest Pain: No Risk Factors: Risk Factors: DM, Current or recent (<one month) smoker, HTN, HLP, family history of CAD, obesity. Risk Scores: Score 0 - 3: 2.5% MACE over next 6 weeks - Discharge Home Score 4 - 6: 20.3% MACE over next 6 weeks - Admit for Clinical Observation Score 7 - 10: 72.7% MACE over next 6 weeks - Early Invasive Strategies Allergies: Allergies: Allergies Coded Allergies Type Severity Reaction Last Updated Verified atorvastatin Allergy Intermediate 02/04/18 Yes enoxaparin Adverse Reaction Severe 04/27/18 Yes warfarin Adverse Reaction Severe 04/27/18 Yes adhesive tape Adverse Reaction Intermediate Rash 02/04/18 Yes diphenhydramine Adverse Reaction Intermediate LIGHTHEADED 09/15/14 No Physical Exam: PE: Constitutional: Well developed, well nourished, no acute distress, non-toxic appearance. [] HENT: Normocephalic, atraumatic, bilateral external ears normal, oropharynx moist, no oral exudates, nose normal. [] Eyes: PERRLA, EOMI, conjunctiva normal, no discharge. [] Neck: Normal range of motion, no tenderness, supple, no stridor. [] Cardiovascular:Heart rate regular rhythm, no murmur [] Lungs & Thorax: Bilateral breath sounds clear to auscultation [] Abdomen: soft, nontender, nonacute abdomen. No involuntary guarding or rigidity noted. No acute peritonitis. Skin: Warm, dry, no erythema, no rash. [] Back: No tenderness, no CVA tenderness. [] Extremities: No tenderness, no cyanosis, no clubbing, ROM intact, no edema. [] Neurologic: Alert and oriented X 3, normal motor function, normal sensory function, no focal deficits noted. [] Psychologic: Affect normal, judgement normal, mood normal. [] Current Patient Data: Labs: Laboratory Tests Test 03/31/22 11:55 03/31/22 12:41 03/31/22 14:39 Urine Collection Type Unknown Urine Color (Auto) Light yellow Urine Turbidity Hazy Urine pH (Auto) 5.5 Urine Specific [place] 1.017 Urine Protein (Auto) Negative mg/dL Urine Glucose (Auto)(UA) >=1000 mg/dL Urine Ketones (Auto) Negative mg/dL Urine Blood (Auto) Trace Urine Nitrite Negative Urine Bilirubin (Auto) Negative Urine Urobilinogen (Auto) Normal mg/dL Urine Leukocyte Esterase (Auto) Large Urine RBC 0 /HPF Urine WBC Tntc /HPF Urine Bacteria Many /HPF White Blood Count 26.1 x10^3/uL Red Blood Count 4.41 x10^6/uL Hemoglobin 12.4 g/dL Hematocrit 36.9 % Mean Corpuscular Volume 84 fL Mean Corpuscular Hemoglobin 28 pg Mean Corpuscular Hemoglobin Concent 34 g/dL Red Cell Distribution Width 14.8 % Platelet Count 435 x10^3/uL Neutrophils (%) (Auto) 92 % Lymphocytes (%) (Auto) 3 % Monocytes (%) (Auto) 4 % Eosinophils (%) (Auto) 0 % Basophils (%) (Auto) 0 % Neutrophils # (Auto) 24.1 x10^3/uL Lymphocytes # (Auto) 0.8 x10^3/uL Monocytes # (Auto) 1.0 x10^3/uL Eosinophils # (Auto) 0.0 x10^3/uL Basophils # (Auto) 0.1 x10^3/uL Segmented Neutrophils % 88 % Band Neutrophils % 4 % Lymphocytes % 3 % Monocytes % 5 % Platelet Estimate Increased Sodium Level 130 mmol/L Potassium Level 4.9 mmol/L Chloride Level 97 mmol/L Carbon Dioxide Level 21 mmol/L Anion Gap 12 Blood Urea Nitrogen 37 mg/dL Creatinine 1.6 mg/dL Estimated GFR (Cockcroft-Gault) 31.8 BUN/Creatinine Ratio 23 Glucose Level 393 mg/dL Calcium Level 9.9 mg/dL Total Bilirubin 0.4 mg/dL Aspartate Amino Transf (AST/SGOT) 10 U/L Alanine Aminotransferase (ALT/SGPT) 16 U/L Alkaline Phosphatase 97 U/L Total Protein 7.8 g/dL Albumin 3.1 g/dL Albumin/Globulin Ratio 0.7 Lactic Acid Level 2.7 mmol/L Current Medications Medications (Trade) Dose Ordered Sig/Dejon Route PRN Reason Start Time Stop Time Status Last Admin Dose Admin Cephalexin HCl (Keflex) 500 mg 1X ONCE PO 03/31/22 13:15 03/31/22 13:16 DC 03/31/22 13:33 Ondansetron HCl (Zofran Odt) 4 mg 1X ONCE PO 03/31/22 13:15 03/31/22 13:16 DC 03/31/22 13:33 Sodium Chloride 1,000 ml @ 0 mls/hr 1X ONCE IV 03/31/22 14:00 03/31/22 13:53 DC Sodium Chloride 1,000 ml @ 1,000 mls/hr 1X ONCE IV 03/31/22 14:00 03/31/22 14:59 DC 03/31/22 13:54 Ceftriaxone Sodium (Rocephin) 1 gm 1X ONCE IVP 03/31/22 14:00 03/31/22 14:02 DC 03/31/22 14:41 Laboratory Tests Test 03/31/22 11:55 Urine Collection Type Unknown Urine Color (Auto) Light yellow Urine Turbidity Hazy Urine pH (Auto) 5.5 (<5.0-8.0) Urine Specific [place] 1.017 (1.000-1.030) Urine Protein (Auto) Negative mg/dL (Negative) Urine Glucose (Auto)(UA) >=1000 mg/dL (Negative) Urine Ketones (Auto) Negative mg/dL (Negative) Urine Blood (Auto) Trace (Negative) Urine Nitrite Negative (Negative) Urine Bilirubin (Auto) Negative (Negative) Urine Urobilinogen (Auto) Normal mg/dL (Normal) Urine Leukocyte Esterase (Auto) Large (Negative) Urine RBC 0 /HPF (0-2) Urine WBC Tntc /HPF (0-4) Urine Bacteria Many /HPF (0-FEW) Vital Signs: Vital Signs Date Time Temp Pulse Resp B/P (MAP) Pulse Ox O2 Delivery O2 Flow Rate FiO2 03/31/22 11:40 99.0 93 18 144/75 (98) 98 Room Air 99.0 EKG: EKG: [] Radiology/Procedures: Radiology/Procedures: [facility] [address] [place] [address] IMAGING REPORT Signed PATIENT: MURIEL LEÓN JACCOUNT: [id number] : 1950 LOCATION: ER AGE: 72 SEX: F EXAM STATUS: REG ER ORD. PHYSICIAN: ML ELIAS DO REASON: LLQ pain PROCEDURE: CT ABDOMEN PELVIS WO CONTRAST CT ABDOMEN+PELVIS WO History: Left lower quadrant pain. Comparison: CT abdomen and pelvis 04/25/2018 Technique: Noncontrast CT of the abdomen and pelvis. Findings: The lung bases are clear. There are coronary artery calcifications partially visualized. The liver, gallbladder, pancreas and adrenal glands are unremarkable. There is punctate calcifications throughout the spleen and a few in the liver which are compatible with old granulomatous disease. The right kidney is unremarkable. The left kidney demonstrates minimal hydronephrosis and edema with perinephric adipose stranding. No nephrolithiasis. No hydroureter. No ureterolithiasis identified. Small sliding hiatal hernia versus patulous distal esophagus. The small bowel is unremarkable. Mild colonic diverticulosis. No evidence of diverticulitis. The uterus and adnexa are within normal limits. The bladder is unremarkable. There is no intra-abdominal free fluid or free air. Mild atherosclerotic calcification of the aorta and iliac arteries; no aneurysm. No abdominopelvic adenopathy. Soft tissues are unremarkable. There are multilevel degenerative changes in the spine with moderate degenerative anterolisthesis of L5 on S1. Severe left hip osteoarthritis. Right total hip arthroplasty changes. Impression: 1. Left kidney edema with mild hydronephrosis and left perinephric fat stranding. Findings may relate to pyelonephritis. No radiopaque urolithiasis calvin ntified. 2. Colonic diverticulosis without evidence of diverticulitis. 3. Degenerative changes of the spine and left hip. ------ Exposure: One or more of the following individualized dose reduction techniques were utilized for this examination: 1. Automated exposure control 2. Adjustment of the mA and/or kV according to patient size 3. Use of iterative reconstruction technique. Electronically signed by: Alirio Munson MD (03/31/2022 3:07 PM) [id number] DICTATED and SIGNED BY: ALIRIO MUNSON MD DATE: 03/31/221501 [] Course & Med Decision Making: Course & Med Decision Making Pertinent Labs and Imaging studies reviewed. (See chart for details) [] Patient is a very pleasant 72-year-old female presents with chief complaint of urinary urgency as well as left lower quadrant and left lower back pain. Initial vital signs unremarkable. Broad work-up obtained. Urinalysis does suggest infection. Urine culture pending. Initially oral Keflex was administered as I felt the patient was likely an appropriate candidate for outpatient treatment. However blood work did return with a significant leukocytosis. Hyponatremia hypochloremia present. CKD with hyperglycemia noted . No signs of DKA. IV Rocephin given additionally. Blood cultures pending. Lactate elevated at 2.7. Fluids will be administered overall I do feel the patient would benefit from hospitalization. Could have sepsis related to pyelonephritis. Case discussed with hospitalist who agrees with plan. No indication for pressor support at this time. The patient had a high probability of sudden, clinically significant deterioration, which required the highest level of physician preparedness to intervene urgently. I managed life or organ supporting interventions that required frequent re-assessment throughout their stay in the emergency department. The total critical care time spent managing their case, separate from other billable procedures, was 31 minutes. Dragon Disclaimer: Dragon Disclaimer: This electronic medical record was generated, in whole or in part, using a voice recognition dictation system. Departure Departure Impression: Primary Impression: Sepsis Qualified Codes: A41.9 - Sepsis, unspecified organism Additional Impressions: Hyponatremia CKD (chronic kidney disease) Qualified Codes: N18.9 - Chronic kidney disease, unspecified Hyperglycemia Leukocytosis Qualified Codes: D72.829 - Elevated white blood cell count, unspecified Pyelonephritis Disposition: ADMITTED INPATIENT Condition: GOOD Referrals: REJI COOK MD (PCP) Patient Instructions: Urinary Tract Infection Scripts Ondansetron (ONDANSETRON ODT) 4 Mg Tab.rapdis 1 TAB PO PRN Q6-8HRS, #9 TAB Prov: ML ELIAS DO 03/31/22 Cephalexin (KEFLEX) 500 Mg Capsule 1 CAP PO BID for 7 Days, #14 CAP Prov: ML ELIAS DO 03/31/22 ML ELIAS DO March 31, 2022 13:12
[2022-03-31] MEDS ORDERED: CEPHALEXIN 250 MG CAPSULE. PO ONE (13:15)
[2022-03-31] MEDS ORDERED: ONDANSETRON ODT 4 MG TAB.RAPDIS. PO ONE (13:15)
[2022-03-31 13:24] LABS: BASO # 0.1 x10^3/uL (0.0-0.2); BASO % 0 % (0-3); EOS % 0 % (0-3); HEMATOCRIT 36.9 % (36.0-47.0); HEMOGLOBIN 12.4 g/dL (12.0-15.5); LYMPH # 0.8 x10^3/uL (1.0-4.8); LYMPH % 3 % (24-48); MEAN CORPUSCULAR HEMOGLOBIN 28 pg (25-35); MEAN CORPUSCULAR HGB CONC 34 g/dL (31-37); MEAN CORPUSCULAR VOLUME 84 fL (79-100); MONO % 4 % (0-9); NEUT # 24.1 x10^3/uL (1.8-7.7); NEUT % 92 % (31-73); PLATELET COUNT 435 x10^3/uL (140-400); RED BLOOD COUNT 4.41 x10^6/uL (3.50-5.40); RED CELL DISTRIBUTION WIDTH 14.8 % (11.5-14.5); WHITE BLOOD COUNT 26.1 x10^3/uL (4.0-11.0)
[2022-03-31 13:34] LABS: CALCIUM 9.9 mg/dL (8.5-10.1); CREATININE 1.6 mg/dL (0.6-1.0); GFR 31.8; POTASSIUM 4.9 mmol/L (3.5-5.1)
[2022-03-31 13:42] LABS: ALBUMIN 3.1 g/dL (3.4-5.0); ALBUMIN/GLOBULIN RATIO 0.7 (1.0-1.7); TOTAL BILIRUBIN 0.4 mg/dL (0.2-1.0); TOTAL PROTEIN 7.8 g/dL (6.4-8.2)
[2022-03-31] MEDS ORDERED: cefTRIAXone IV Push 1 GM VIAL. IVP ONE (14:00)
[2022-03-31] MEDS ORDERED: IV NORMAL SALINE 1000ML BAG 1,000 ML IV ONE ×3 (14:00→15:30)
[2022-03-31 14:12] LABS: % BANDS 4 % (0-9); % LYMPHS 3 % (24-48); % MONOS 5 % (0-10); % SEGS 88 % (35-66); PLT ESTIMATE INCREASED (ADEQUATE)
--- NOTE | 2022-03-31 15:10 | RAD ---
CT ABDOMEN+PELVIS WO History: Left lower quadrant pain. Comparison: CT abdomen and pelvis 04/25/2018 Technique: Noncontrast CT of the abdomen and pelvis. Findings: The lung bases are clear. There are coronary artery calcifications partially visualized. The liver, gallbladder, pancreas and adrenal glands are unremarkable. There is punctate calcification s throughout the spleen and a few in the liver which are compatible with old granulomatous disease. T he right kidney is unremarkable. The left kidney demonstrates minimal hydronephrosis and edema with p erinephric adipose stranding. No nephrolithiasis. No hydroureter. No ureterolithiasis identified. Small sliding hiatal hernia versus patulous distal esophagus. The small bowel is unremarkable. Mild c olonic diverticulosis. No evidence of diverticulitis. The uterus and adnexa are within normal limits. The bladder is unremarkable. There is no intra-abdomi nal free fluid or free air. Mild atherosclerotic calcification of the aorta and iliac arteries; no an eurysm. No abdominopelvic adenopathy. Soft tissues are unremarkable. There are multilevel degenerative changes in the spine with moderate d egenerative anterolisthesis of L5 on S1. Severe left hip osteoarthritis. Right total hip arthroplasty changes. Impression: 1. Left kidney edema with mild hydronephrosis and left perinephric fat stranding. Findings may relat e to pyelonephritis. No radiopaque urolithiasis identified. 2. Colonic diverticulosis without evidence of diverticulitis. 3. Degenerative changes of the spine and left hip. ------ Exposure: One or more of the following individualized dose reduction techniques were utilized for thi s examination: 1. Automated exposure control 2. Adjustment of the mA and/or kV according to patient size 3. Use of iterative reconstruction technique. Electronically signed by: Alirio Prater MD (03/31/2022 3:07 PM) [id number]
--- NOTE | 2022-03-31 15:27 | PDOC1 ---
History and Physical Date of Service: DOS: DATE: 03/31/22 TIME: 15:21 Chief Complaint: Chief Complain: Lower abdominal pain History of Present Illness: HPI: 72-year-old female with past medical history of diabetes mellitus type 2, dyslipidemia, hypertension who comes in after having left suprapubic and inguinal pain after bowel movement. She also had some discomfort in the area after urination. She does not describe it as burning but more of a pinching and strain like sensation. Hit her but bowel movements were nonbloody and she does endorse normal passing of gas. Some nausea and vomiting. Denies any history of UTIs, fevers, chest pain, shortness of breath or hematuria. Patient has had a normal colonoscopy in the past. Past Medical/Surgical History: PMH/PSH: Past Medical History: A-Fib, Diabetes-Type II, High Cholesterol, Hypertension, RECTAL BLEEDING Past Surgical History: cardiac cath in september, R hip replacement. Allergies: Allergies: Coded Allergies: atorvastatin (Verified Allergy, Intermediate, 02/04/18) MUSCULAR PAIN enoxaparin (Verified Adverse Reaction, Severe, 04/27/18) Bleeding out of every orfice warfarin (Verified Adverse Reaction, Severe, 04/27/18) bleeding out of every Orfice adhesive tape (Verified Adverse Reaction, Intermediate, Rash, 02/04/18) diphenhydramine (Unverified Adverse Reaction, Intermediate, LIGHTHEADED, 09/15/14) Family History: Family History: Reviewed with no relative findings in the chart Social History: Social History: Smoking Status: Never Smoker Alcohol Use: None Drug Use: None Current Medications: Current Medications Current Medications Cephalexin HCl (Keflex) 500 mg 1X ONCE PO Last administered on 03/31/22at 13:33; Start 03/31/22 at 13:15; Stop 03/31/22 at 13:16; Status DC Ondansetron HCl (Zofran Odt) 4 mg 1X ONCE PO Last administered on 03/31/22at 13:33; Start 03/31/22 at 13:15; Stop 03/31/22 at 13:16; Status DC Sodium Chloride 1,000 ml @ 0 mls/hr 1X ONCE IV ; Start 03/31/22 at 14:00; Stop 03/31/22 at 13:53; Status DC Sodium Chloride 1,000 ml @ 1,000 mls/hr 1X ONCE IV Last administered on 03/31/22at 13:54; Start 03/31/22 at 14:00; Stop 03/31/22 at 14:59; Status DC Ceftriaxone Sodium (Rocephin) 1 gm 1X ONCE IVP Last administered on 03/31/22at 14:41; Start 03/31/22 at 14:00; Stop 03/31/22 at 14:02; Status DC Sodium Chloride 1,000 ml @ 1,000 mls/hr 1X ONCE IV ; Start 03/31/22 at 15:30; Stop 03/31/22 at 16:29; Status UNV Active Scripts Active Ondansetron Odt (Ondansetron) 4 Mg Tab.rapdis 1 Tab PO PRN Q6-8HRS Keflex (Cephalexin) 500 Mg Capsule 1 Cap PO BID 7 Days Reported Senna-Docusate Sodium Tablet (Sennosides/Docusate Sodium) 1 Each Tablet 1 Each PO DAILY Tramadol Hcl 50 Mg Tablet 50 Mg PO Q4HRS PRN Azelastine Hcl 137 Mcg/0.137 Ml Crozet.pump 1 Crozet NS BID Cardizem Cd (Diltiazem Hcl) 240 Mg Cap.er.24h 240 Mg PO DAILY Lisinopril-Hctz 20-25 Mg Tab (Lisinopril/Hydrochlorothiazide) 1 Each Tablet 1 Tab PO DAILY Metformin Hcl 500 Mg Tablet 500 Mg PO BIDWMEALS ROS: Review of Systems Review of System REVIEW OF SYSTEMS: GENERAL: Denies weakness SKIN: No bruising, hair changes or rashes. EYES: No blurred, double or loss of vision. NOSE AND THROAT: No history of nosebleeds, hoarseness or sore throat. HEART: No history of palpitations, chest pain or shortness of breath on exertion. LUNGS: Denies cough, hemoptysis, wheezing or shortness of breath. GASTROINTESTINAL: Denies changes in appetite, nausea, vomiting, diarrhea or constipation. GENITOURINARY: No history of frequency, urgency, hesitancy or nocturia. NEUROLOGIC: Denies history of numbness, tingling, or tremor. PSYCHIATRIC: No history of panic, anxiety or depression. ENDOCRINE: No history of heat or cold intolerance, polyuria or polydipsia. EXTREMITIES: Denies joint pain, pain on walking or stiffness. Physical Exam: Vital Signs: Vital Signs Date Time Temp Pulse Resp B/P (MAP) Pulse Ox O2 Delivery O2 Flow Rate FiO2 03/31/22 14:36 89 25 164/72 (102) 97 Room Air 03/31/22 13:27 99.0 99.0 Physcial Exam: General: Well developed, well nourished, no acute distress, well appearing HEENT: Pupils equally round and reactive to light, EOMI, no discharge, normal conjunctiva Neck: Supple, no nuchal rigidity, no JVD, trachea midline, no tenderness Cardiac: RRR, no murmurs, no gallops, no rubs Chest/Lungs: CTAB, no wheeze, no rhonchi, no crackles Abdomen: soft, non-distended, no guarding, no peritoneal signs, mild tenderness in the left lower quadrant Back: No tenderness Extremities: no edema, pulses intact, non-tender,capillary refill <3 sec bilateral upper and lower extremities left knee pain. Limited range of motion unable to fully extend left lower extremity, Neuro: Alert and oriented x 4, no focal deficits, normal speech Labs: Labs: Laboratory Tests Test 03/31/22 11:55 03/31/22 12:41 03/31/22 14:39 Urine Collection Type Unknown Urine Color (Auto) Light yellow Urine Turbidity Hazy Urine pH (Auto) 5.5 (<5.0-8.0) Urine Specific [place] 1.017 (1.000-1.030) Urine Protein (Auto) Negative mg/dL (Negative) Urine Glucose (Auto)(UA) >=1000 mg/dL (Negative) Urine Ketones (Auto) Negative mg/dL (Negative) Urine Blood (Auto) Trace (Negative) Urine Nitrite Negative (Negative) Urine Bilirubin (Auto) Negative (Negative) Urine Urobilinogen (Auto) Normal mg/dL (Normal) Urine Leukocyte Esterase (Auto) Large (Negative) Urine RBC 0 /HPF (0-2) Urine WBC Tntc /HPF (0-4) Urine Bacteria Many /HPF (0-FEW) White Blood Count 26.1 x10^3/uL (4.0-11.0) Red Blood Count 4.41 x10^6/uL (3.50-5.40) Hemoglobin 12.4 g/dL (12.0-15.5) Hematocrit 36.9 % (36.0-47.0) Mean Corpuscular Volume 84 fL (79-100) Mean Corpuscular Hemoglobin 28 pg (25-35) Mean Corpuscular Hemoglobin Concent 34 g/dL (31-37) Red Cell Distribution Width 14.8 % (11.5-14.5) Platelet Count 435 x10^3/uL (140-400) Neutrophils (%) (Auto) 92 % (31-73) Lymphocytes (%) (Auto) 3 % (24-48) Monocytes (%) (Auto) 4 % (0-9) Eosinophils (%) (Auto) 0 % (0-3) Basophils (%) (Auto) 0 % (0-3) Neutrophils # (Auto) 24.1 x10^3/uL (1.8-7.7) Lymphocytes # (Auto) 0.8 x10^3/uL (1.0-4.8) Monocytes # (Auto) 1.0 x10^3/uL (0.0-1.1) Eosinophils # (Auto) 0.0 x10^3/uL (0.0-0.7) Basophils # (Auto) 0.1 x10^3/uL (0.0-0.2) Segmented Neutrophils % 88 % (35-66) Band Neutrophils % 4 % (0-9) Lymphocytes % 3 % (24-48) Monocytes % 5 % (0-10) Platelet Estimate Increased (ADEQUATE) Sodium Level 130 mmol/L (136-145) Potassium Level 4.9 mmol/L (3.5-5.1) Chloride Level 97 mmol/L (98-107) Carbon Dioxide Level 21 mmol/L (21-32) Anion Gap 12 (6-14) Blood Urea Nitrogen 37 mg/dL (7-20) Creatinine 1.6 mg/dL (0.6-1.0) Estimated GFR (Cockcroft-Gault) 31.8 BUN/Creatinine Ratio 23 (6-20) Glucose Level 393 mg/dL (70-99) Calcium Level 9.9 mg/dL (8.5-10.1) Total Bilirubin 0.4 mg/dL (0.2-1.0) Aspartate Amino Transf (AST/SGOT) 10 U/L (15-37) Alanine Aminotransferase (ALT/SGPT) 16 U/L (14-59) Alkaline Phosphatase 97 U/L (46-116) Total Protein 7.8 g/dL (6.4-8.2) Albumin 3.1 g/dL (3.4-5.0) Albumin/Globulin Ratio 0.7 (1.0-1.7) Lactic Acid Level 2.7 mmol/L (0.4-2.0) Laboratory Tests Test 03/31/22 11:55 03/31/22 12:41 03/31/22 14:39 Urine Collection Type Unknown Urine Color (Auto) Light yellow Urine Turbidity Hazy Urine pH (Auto) 5.5 (<5.0-8.0) Urine Specific [place] 1.017 (1.000-1.030) Urine Protein (Auto) Negative mg/dL (Negative) Urine Glucose (Auto)(UA) >=1000 mg/dL (Negative) Urine Ketones (Auto) Negative mg/dL (Negative) Urine Blood (Auto) Trace (Negative) Urine Nitrite Negative (Negative) Urine Bilirubin (Auto) Negative (Negative) Urine Urobilinogen (Auto) Normal mg/dL (Normal) Urine Leukocyte Esterase (Auto) Large (Negative) Urine RBC 0 /HPF (0-2) Urine WBC Tntc /HPF (0-4) Urine Bacteria Many /HPF (0-FEW) White Blood Count 26.1 x10^3/uL (4.0-11.0) Red Blood Count 4.41 x10^6/uL (3.50-5.40) Hemoglobin 12.4 g/dL (12.0-15.5) Hematocrit 36.9 % (36.0-47.0) Mean Corpuscular Volume 84 fL (79-100) Mean Corpuscular Hemoglobin 28 pg (25-35) Mean Corpuscular Hemoglobin Concent 34 g/dL (31-37) Red Cell Distribution Width 14.8 % (11.5-14.5) Platelet Count 435 x10^3/uL (140-400) Neutrophils (%) (Auto) 92 % (31-73) Lymphocytes (%) (Auto) 3 % (24-48) Monocytes (%) (Auto) 4 % (0-9) Eosinophils (%) (Auto) 0 % (0-3) Basophils (%) (Auto) 0 % (0-3) Neutrophils # (Auto) 24.1 x10^3/uL (1.8-7.7) Lymphocytes # (Auto) 0.8 x10^3/uL (1.0-4.8) Monocytes # (Auto) 1.0 x10^3/uL (0.0-1.1) Eosinophils # (Auto) 0.0 x10^3/uL (0.0-0.7) Basophils # (Auto) 0.1 x10^3/uL (0.0-0.2) Segmented Neutrophils % 88 % (35-66) Band Neutrophils % 4 % (0-9) Lymphocytes % 3 % (24-48) Monocytes % 5 % (0-10) Platelet Estimate Increased (ADEQUATE) Sodium Level 130 mmol/L (136-145) Potassium Level 4.9 mmol/L (3.5-5.1) Chloride Level 97 mmol/L (98-107) Carbon Dioxide Level 21 mmol/L (21-32) Anion Gap 12 (6-14) Blood Urea Nitrogen 37 mg/dL (7-20) Creatinine 1.6 mg/dL (0.6-1.0) Estimated GFR (Cockcroft-Gault) 31.8 BUN/Creatinine Ratio 23 (6-20) Glucose Level 393 mg/dL (70-99) Calcium Level 9.9 mg/dL (8.5-10.1) Total Bilirubin 0.4 mg/dL (0.2-1.0) Aspartate Amino Transf (AST/SGOT) 10 U/L (15-37) Alanine Aminotransferase (ALT/SGPT) 16 U/L (14-59) Alkaline Phosphatase 97 U/L (46-116) Total Protein 7.8 g/dL (6.4-8.2) Albumin 3.1 g/dL (3.4-5.0) Albumin/Globulin Ratio 0.7 (1.0-1.7) Lactic Acid Level 2.7 mmol/L (0.4-2.0) Images: Images PROCEDURE: CT ABDOMEN PELVIS WO CONTRAST CT ABDOMEN+PELVIS WO History: Left lower quadrant pain. Comparison: CT abdomen and pelvis 04/25/2018 Technique: Noncontrast CT of the abdomen and pelvis. Findings: The lung bases are clear. There are coronary artery calcifications partially visualized. The liver, gallbladder, pancreas and adrenal glands are unremarkable. There is punctate calcifications throughout the spleen and a few in the liver which are compatible with old granulomatous disease. The right kidney is unremarkable. The left kidney demonstrates minimal hydronephrosis and edema with perinephric adipose stranding. No nephrolithiasis. No hydroureter. No ureterolithiasis identified. Small sliding hiatal hernia versus patulous distal esophagus. The small bowel is unremarkable. Mild colonic diverticulosis. No evidence of diverticulitis. The uterus and adnexa are within normal limits. The bladder is unremarkable. There is no intra-abdominal free fluid or free air. Mild atherosclerotic calcification of the aorta and iliac arteries; no aneurysm. No abdominopelvic adenopathy. Soft tissues are unremarkable. There are multilevel degenerative changes in the spine with moderate degenerative anterolisthesis of L5 on S1. Severe left hip osteoarthritis. Right total hip arthroplasty changes. Impression: 1. Left kidney edema with mild hydronephrosis and left perinephric fat stranding. Findings may relate to pyelonephritis. No radiopaque urolithiasis identified. 2. Colonic diverticulosis without evidence of diverticulitis. 3. Degenerative changes of the spine and left hip. 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, baseline creatinine appears to be 1.3 in January 2022 Lactic acidemia History of diabetes mellitus type 2 History of dyslipidemia History of atrial fibrillation, not on any blood thinners or rate control medications History of hypertension Admit to hospitalist service for further management Continue IV fluids Continue IV antibiotics Pending urine cultures R ISS and Accu-Cheks Continue telemetry monitoring Heparin for DVT prophylaxis ADA diet CODE STATUS full Discussed with RN and SW Disposition inpatient management as above DPOA: Sister Justifications for Admission Other Justification NINA BOTELLO MD March 31, 2022 15:26
[2022-03-31] MEDS ORDERED: ACETAMINOPHEN 325 MG TABLET. PO PRN (16:30)
[2022-03-31] MEDS ORDERED: DEXTROSE 50% 25 GM / 50ML DISP.SYRIN. IV PRN (16:30)
[2022-03-31] MEDS ORDERED: ENOXAPARIN 40 MG/0.4 ML SYRINGE. SQ SCH (16:30)
[2022-03-31] MEDS ORDERED: HYDROcodone/APAP 5/325MG 1 TAB TABLET PO PRN ×2 (16:30)
[2022-03-31] MEDS ORDERED: DOCUSATE SODIUM 100 MG CAPSULE. PO PRN (16:30)
[2022-03-31] MEDS ORDERED: diphenhydrAMINE HCL 25 MG CAPSULE PO PRN ×2 (16:30)
[2022-03-31] MEDS ORDERED: ZOLPIDEM 5 MG TABLET. PO PRN (16:30)
[2022-03-31] MEDS ORDERED: PROCHLORPERAZINE 10 MG/2 ML VIAL. IV PRN (16:30)
[2022-03-31] MEDS ORDERED: SENNOSIDES 8.6 MG TABLET PO PRN (16:30)
[2022-03-31] MEDS ORDERED: diphenhydrAMINE 50 MG/ML VIAL IVP PRN (16:30)
[2022-03-31] MEDS ORDERED: MORPHINE SULFATE 2 MG/ML INJ. IV PRN (16:30)
[2022-03-31] MEDS ORDERED: LORazepam 0.5 MG TABLET PO PRN (16:30)
[2022-03-31 17:14] VITALS: BP 150/76
[2022-03-31] MEDS: IV NORMAL SALINE 1000ML BAG 1,000 ML IV SCH (17:19)
[2022-03-31] MEDS: INSULIN LISPRO 300 UNITS/3 ML VIAL. SQ SCH (17:32)
[2022-03-31 19:00] VITALS: BP 102/53
[2022-03-31] MEDS: HEPARIN for SUB-Q USE 5,000 UNIT/ML VIAL. SQ SCH (21:31)
[2022-03-31 23:00] VITALS: BP 103/44
--- NOTE | 2022-04-01 00:29 | RAD ---
Two-view left knee HISTORY: Pain Limited two-view AP lateral views There is loss of the patellofemoral joint space with marginal spurring. There is mild marginal spurri ng of the medial and lateral compartments. There is no lytic destructive changes. IMPRESSION: Osteoarthrosis. No acute findings. Electronically signed by: Garth Parker III, MD (04/01/2022 12:26 AM) [facility]
[2022-04-01 03:00] VITALS: BP 126/64
[2022-04-01] MEDS: IV NORMAL SALINE 1000ML BAG 1,000 ML IV SCH ×3 (03:01→19:53)
[2022-04-01] MEDS: ONDANSETRON PF 4 MG/2 ML VIAL. IVP PRN ×2 (03:01→19:58)
[2022-04-01 05:58] LABS: CALCIUM 8.5 mg/dL (8.5-10.1); CREATININE 1.7 mg/dL (0.6-1.0); GFR 29.6; MAGNESIUM 1.5 mg/dL (1.8-2.4); PHOSPHORUS 2.7 mg/dL (2.6-4.7); POTASSIUM 4.2 mmol/L (3.5-5.1)
[2022-04-01 05:59] LABS: BASO % 0 % (0-3); EOS % 0 % (0-3); HEMATOCRIT 31.3 % (36.0-47.0); HEMOGLOBIN 10.4 g/dL (12.0-15.5); LYMPH # 0.8 x10^3/uL (1.0-4.8); LYMPH % 3 % (24-48); MEAN CORPUSCULAR HEMOGLOBIN 28 pg (25-35); MEAN CORPUSCULAR HGB CONC 33 g/dL (31-37); MEAN CORPUSCULAR VOLUME 85 fL (79-100); MONO % 3 % (0-9); NEUT # 30.6 x10^3/uL (1.8-7.7); NEUT % 94 % (31-73); PLATELET COUNT 361 x10^3/uL (140-400); RED BLOOD COUNT 3.68 x10^6/uL (3.50-5.40); WHITE BLOOD COUNT 32.5 x10^3/uL (4.0-11.0)
[2022-04-01 07:00] VITALS: BP 136/64
[2022-04-01] MEDS: HEPARIN for SUB-Q USE 5,000 UNIT/ML VIAL. SQ SCH ×3 (07:10→19:52)
[2022-04-01] MEDS: INSULIN LISPRO 300 UNITS/3 ML VIAL. SQ SCH ×3 (08:12→17:14)
[2022-04-01 11:00] VITALS: BP 113/61
[2022-04-01] MEDS: cefTRIAXone IV Push 1 GM VIAL. IVP SCH (14:40)
[2022-04-01 15:00] VITALS: BP 125/49
--- NOTE | 2022-04-01 17:23 | PDOC ---
[facility] PROGRESS NOTE Date of Service DOS: DATE: 04/01/22 TIME: 17:22 Chief Complaint Chief Complaint Assessment/Plan Sepsis Acute pyelonephritis Thrombocytosis related to infectious etiology Acute electrolyte derangementhyponatremia, hypochloremia due to volume depletion Acute on chronic kidney injury due to vasomotor nephropathy, baseline creatinine appears to be 1.3 in January 2022 Lactic acidemia History of diabetes mellitus type 2 History of dyslipidemia History of atrial fibrillation, not on any blood thinners or rate control medications History of hypertension Admit to hospitalist service for further management Continue IV fluids Continue IV antibiotics Pending urine cultures R ISS and Accu-Cheks Continue telemetry monitoring Heparin for DVT prophylaxis ADA diet CODE STATUS full Discussed with RN and SW Disposition inpatient management as above DPOA: Sister History of Present Illness History of Present Illness 04/01 Evaluate examined at bedside. Resting in bed. Continue IV antibiotics. Electrolytes improving. Monitor renal function. Discussed with bedside RN. Otherwise continue current. Vitals/I&O Vitals/I&O: Vital Signs Date Time Temp Pulse Resp B/P (MAP) Pulse Ox O2 Delivery O2 Flow Rate FiO2 04/01/22 15:00 98.2 84 17 125/49 (74) 92 Room Air 98.2 04/01/22 08:00 94.0 I & O 03/31/22 03/31/22 04/01/22 15:00 23:00 07:00 Intake Total 1920 ml Output Total 0 ml 300 ml Balance 1920 ml -300 ml Physical Exam General: Alert, Oriented X3, Cooperative Heart: Regular rate Lungs: Clear Abdomen: Normal bowel sounds, Soft, No tenderness Extremities: No edema, Normal pulses Skin: No significant lesion Labs Labs: Laboratory Tests Test 03/31/22 17:50 04/01/22 04:20 04/01/22 07:37 04/01/22 11:46 Lactic Acid Level 3.0 mmol/L (0.4-2.0) White Blood Count 32.5 x10^3/uL (4.0-11.0) Red Blood Count 3.68 x10^6/uL (3.50-5.40) Hemoglobin 10.4 g/dL (12.0-15.5) Hematocrit 31.3 % (36.0-47.0) Mean Corpuscular Volume 85 fL (79-100) Mean Corpuscular Hemoglobin 28 pg (25-35) Mean Corpuscular Hemoglobin Concent 33 g/dL (31-37) Red Cell Distribution Width 15.0 % (11.5-14.5) Platelet Count 361 x10^3/uL (140-400) Neutrophils (%) (Auto) 94 % (31-73) Lymphocytes (%) (Auto) 3 % (24-48) Monocytes (%) (Auto) 3 % (0-9) Eosinophils (%) (Auto) 0 % (0-3) Basophils (%) (Auto) 0 % (0-3) Neutrophils # (Auto) 30.6 x10^3/uL (1.8-7.7) Lymphocytes # (Auto) 0.8 x10^3/uL (1.0-4.8) Monocytes # (Auto) 1.0 x10^3/uL (0.0-1.1) Eosinophils # (Auto) 0.0 x10^3/uL (0.0-0.7) Basophils # (Auto) 0.0 x10^3/uL (0.0-0.2) Sodium Level 130 mmol/L (136-145) Potassium Level 4.2 mmol/L (3.5-5.1) Chloride Level 97 mmol/L (98-107) Carbon Dioxide Level 19 mmol/L (21-32) Anion Gap 14 (6-14) Blood Urea Nitrogen 32 mg/dL (7-20) Creatinine 1.7 mg/dL (0.6-1.0) Estimated GFR (Cockcroft-Gault) 29.6 Glucose Level 299 mg/dL (70-99) Calcium Level 8.5 mg/dL (8.5-10.1) Phosphorus Level 2.7 mg/dL (2.6-4.7) Magnesium Level 1.5 mg/dL (1.8-2.4) Glucose (Fingerstick) 283 mg/dL (70-99) 250 mg/dL (70-99) Test 04/01/22 16:50 Glucose (Fingerstick) 295 mg/dL (70-99) Assessment and Plan Assessmemt and Plan Problems Medical Problems: (1) CKD (chronic kidney disease) Status: Acute (2) Hyperglycemia Status: Acute (3) Hyponatremia Status: Acute (4) Leukocytosis Status: Acute (5) Pyelonephritis Status: Acute (6) Sepsis Status: Acute (7) UTI (urinary tract infection) Status: Acute Comment Review of Relevant I have reviewed the following items tanner (where applicable) has been applied. Medications: Current Medications Medications (Trade) Dose Ordered Sig/Dejon Route PRN Reason Start Time Stop Time Status Last Admin Dose Admin Ceftriaxone Sodium (Rocephin) 1 gm Q24H IVP 04/01/22 15:00 04/01/22 14:40 Heparin Sodium (Porcine) (Heparin Sodium) 5,000 unit Q8HRS SQ 03/31/22 22:00 04/01/22 14:45 Justifications for Admission Other Justification Acute pyelonephritis INEZ MACDONALD MD April 01, 2022 17:23
[2022-04-01 19:00] VITALS: BP 152/95
[2022-04-01] MEDS: LACTOBACILLUS RHAMNOSUS GG 1 CAPSULE. PO SCH ×2 (19:52→19:58)
[2022-04-01 23:00] VITALS: BP 147/63
[2022-04-02 01:08] LABS: HEMOGLOBIN A1C 13.5 % (4.8-5.6)
[2022-04-02 03:22] VITALS: BP 157/66
[2022-04-02 05:03] LABS: BASO % 0 % (0-3); EOS % 0 % (0-3); HEMATOCRIT 30.5 % (36.0-47.0); HEMOGLOBIN 10.2 g/dL (12.0-15.5); LYMPH # 0.8 x10^3/uL (1.0-4.8); LYMPH % 3 % (24-48); MEAN CORPUSCULAR HEMOGLOBIN 28 pg (25-35); MEAN CORPUSCULAR HGB CONC 33 g/dL (31-37); MEAN CORPUSCULAR VOLUME 84 fL (79-100); MONO # 1.1 x10^3/uL (0.0-1.1); MONO % 5 % (0-9); NEUT # 22.3 x10^3/uL (1.8-7.7); NEUT % 92 % (31-73); PLATELET COUNT 316 x10^3/uL (140-400); RED BLOOD COUNT 3.65 x10^6/uL (3.50-5.40); RED CELL DISTRIBUTION WIDTH 14.8 % (11.5-14.5); WHITE BLOOD COUNT 24.2 x10^3/uL (4.0-11.0)
[2022-04-02 05:23] LABS: CALCIUM 8.4 mg/dL (8.5-10.1); CREATININE 1.8 mg/dL (0.6-1.0); GFR 27.7; MAGNESIUM 1.5 mg/dL (1.8-2.4); POTASSIUM 4.1 mmol/L (3.5-5.1)
[2022-04-02] MEDS: HEPARIN for SUB-Q USE 5,000 UNIT/ML VIAL. SQ SCH ×3 (06:10→20:02)
[2022-04-02 07:00] VITALS: BP 155/59
[2022-04-02] MEDS: INSULIN LISPRO 300 UNITS/3 ML VIAL. SQ SCH ×3 (08:04→17:35)
[2022-04-02] MEDS: IV NORMAL SALINE 1000ML BAG 1,000 ML IV SCH ×2 (08:27→17:50)
[2022-04-02] MEDS: LACTOBACILLUS RHAMNOSUS GG 1 CAPSULE. PO SCH ×2 (08:29→20:01)
[2022-04-02 11:00] VITALS: BP 126/67
[2022-04-02] MEDS: cefTRIAXone IV Push 1 GM VIAL. IVP SCH (14:15)
[2022-04-02 15:00] VITALS: BP 150/66
[2022-04-02 19:00] VITALS: BP 142/63
--- NOTE | 2022-04-03 07:58 | PDOC ---
[employer] PROGRESS NOTE Date of Service DOS: Late entry April 02 Chief Complaint Chief Complaint Assessment/Plan Sepsis Acute pyelonephritis Thrombocytosis related to infectious etiology Acute electrolyte derangementhyponatremia, hypochloremia due to volume depletion Acute on chronic kidney injury due to vasomotor nephropathy, baseline creatinine appears to be 1.3 in January 2022 Lactic acidemia History of diabetes mellitus type 2 History of dyslipidemia History of atrial fibrillation, not on any blood thinners or rate control medications History of hypertension Admit to hospitalist service for further management Continue IV fluids Continue IV antibiotics Pending urine cultures R ISS and Accu-Cheks Continue telemetry monitoring Heparin for DVT prophylaxis ADA diet CODE STATUS full Discussed with RN and SW Disposition inpatient management as above DPOA: Sister History of Present Illness History of Present Illness 04/02 Evaluate examined at bedside. Resting in bed. Discussed with her culture results. Did states she is feeling a little bit weak still. Planning for discharge home tomorrow. 04/01 Evaluate examined at bedside. Resting in bed. Continue IV antibiotics. Electrolytes improving. Monitor renal function. Discussed with bedside RN. Otherwise continue current. Vitals/I&O Vitals/I&O: Vital Signs Date Time Temp Pulse Resp B/P (MAP) Pulse Ox O2 Delivery O2 Flow Rate FiO2 04/02/22 20:00 Room Air 94.0 04/02/22 19:00 97.8 85 18 142/63 (89) 97 97.8 Physical Exam General: Alert, Oriented X3, Cooperative Heart: Regular rate Lungs: Clear Abdomen: Normal bowel sounds, Soft, No tenderness Extremities: No edema, Normal pulses Skin: No significant lesion Labs Labs: Laboratory Tests Test 04/02/22 11:27 04/02/22 17:03 04/02/22 18:51 Glucose (Fingerstick) 287 mg/dL (70-99) 255 mg/dL (70-99) 307 mg/dL (70-99) Assessment and Plan Assessmemt and Plan Problems Medical Problems: (1) CKD (chronic kidney disease) Status: Acute (2) Hyperglycemia Status: Acute (3) Hyponatremia Status: Acute (4) Leukocytosis Status: Acute (5) Pyelonephritis Status: Acute (6) Sepsis Status: Acute (7) UTI (urinary tract infection) Status: Acute Comment Review of Relevant I have reviewed the following items tanner (where applicable) has been applied. Justifications for Admission Other Justification Acute pyelonephritis INEZ MACDONALD MD Apr 03, 2022 07:57
== END 2022-04-03 | disposition home or self-care (01) | DRG 871 ==
LOC: ER 11:10 → 5 NORTH 15:30
PROVIDERS: ADMIT Internal Medicine; ATTEND Internal Medicine
DX: A41.9 Sepsis, unspecified organism (principal); N17.0 Acute kidney failure with tubular necrosis; N10 Acute pyelonephritis; E87.1 Hypo-osmolality and hyponatremia; N13.6 Pyonephrosis; D75.839 Thrombocytosis, unspecified; E11.22 Type 2 diabetes mellitus with diabetic chronic kidney disease; E11.65 Type 2 diabetes mellitus with hyperglycemia; E78.00 Pure hypercholesterolemia, unspecified; E78.5 Hyperlipidemia, unspecified; I12.9 Hypertensive chronic kidney disease with stage 1 through stage 4 chronic kidney disease, or unspecified chronic kidney disease; I25.10 Atherosclerotic heart disease of native coronary artery without angina pectoris; I48.91 Unspecified atrial fibrillation; I70.0 Atherosclerosis of aorta; K57.30 Diverticulosis of large intestine without perforation or abscess without bleeding; M16.12 Unilateral primary osteoarthritis, left hip; M43.17 Spondylolisthesis, lumbosacral region; N18.9 Chronic kidney disease, unspecified; Z96.641 Presence of right artificial hip joint; Z79.84 Long term (current) use of oral hypoglycemic drugs
CPT/HCPCS: 36415; 73560; 74176; 80048; 80053; 81001; 82962; 83036; 83605; 83735; 84100; 85007; 85025; 87077; 87086; 87186; 96361; 96374; J0696; J1644; J1815; J2405; J7030; 97116-GP; 97530-GO; 97535-GO; 99291-25; G0378